=== PATIENT | female | born 1980 | race Caucasian/White ===

== ENCOUNTER 2018-11-15 00:34 | Emergency (ER) | payer OTHER ==
[~2018-11-15] VITALS: Ht 157.5 cm; Wt 81.7 kg
[2018-11-15] MEDS ORDERED: ZOLOFT25 MG PO (00:44)
[2018-11-15] MEDS ORDERED: ATENOLOL 25 MG25 M1 PO (00:44)
[2018-11-15] MEDS ORDERED: XALATAN2.5 ML OPHTHALMIC (00:45)
[2018-11-15] MEDS ORDERED: IBUPROFEN 800800 M1 PO (01:02)
[2018-11-15] MEDS ORDERED: NORCO 5-325 TA1 EAC1 PO (01:02)
[2018-11-15] MEDS ORDERED: FLEXERIL PO (01:02)
[2018-11-15 01:22] VITALS: BP 127/76
== END 2018-11-15 01:24 | disposition home or self-care (01) ==
LOC: M.ERS 00:34
DX: M26.602 Left temporomandibular joint disorder, unspecified (principal); Z88.6 Allergy status to analgesic agent